=== PATIENT | male | born 1955 | race American Indian/Alaskan Native ===

== ENCOUNTER 2017-04-08 16:39 | Inpatient (IN) | payer OTHER ==
--- NOTE | 2017-04-08 16:54 | Emergency Department Report ---
Chief Complaint: Dyspnea/Respdistress Stated Complaint: SOB/CHEST PAIN Time Seen by Provider: 04/08/17 16:50 - HPI History of Present Illness: PT c/o cp and sob since yesterday PT states he had CHF 1 month ago. PT states he ran out of his medications - ROS Review of Systems: + cp + sob - leg swelling - Exam Physical Exam: pt looks well, non toxic no crackles auscultated jose MSE screening note: Focused history and physical exam performed. Due to findings the following was ordered: ekg, labs, xr ED Disposition for MSE Condition: Stable
[2017-04-08 18:05] LABS: Basophils % (Auto) 0.6 % (0.0-1.8); Eosinophils % (Auto) 4.9 % (0.0-4.3); Hematocrit 38.6 % (35.5-45.6); Hemoglobin 12.7 gm/dl (11.8-15.2); Mean Corpuscular HGB Conc 33 % (32-34); Mean Corpuscular Hemoglobin 28 pg (28-32); Mean Corpuscular Volume 86 fl (84-94); Platelet Count 175 K/mm3 (140-440); Red Blood Count 4.49 M/mm3 (3.65-5.03); White Blood Count 8.2 K/mm3 (4.5-11.0)
[2017-04-08 18:18] LABS: Alanine Aminotransferase 39 units/L (7-56); Albumin 3.7 g/dL (3.9-5); Albumin/Globulin Ratio 1.2 %; Alkaline Phosphatase 93 units/L (35-129); Anion Gap 18 mmol/L; Blood Urea Nitrogen 24 mg/dL (9-20); Calcium 8.7 mg/dL (8.4-10.2); Carbon Dioxide 23 mmol/L (22-30); Chloride 105.8 mmol/L (98-107); Glucose 94 mg/dL (75-100); Potassium 4.6 mmol/L (3.6-5.0); Sodium 142 mmol/L (137-145); Total Protein 6.8 g/dL (6.3-8.2)
[2017-04-09] MEDS ORDERED: NITRO-BID 2% TP ONE (02:52)
[2017-04-09] MEDS ORDERED: ASPIRIN PO ONE (02:53)
[2017-04-09] MEDS ORDERED: LASIX IV ONE (02:53)
[2017-04-09] MEDS ORDERED: CATAPRES PO ONE (02:53)
--- NOTE | 2017-04-09 03:44 | Emergency Department Report ---
ED Shortness of Breath HPI - General Chief Complaint: Chest Pain Stated Complaint: SOB/CHEST PAIN Time Seen by Provider: 04/08/17 16:50 Source: patient, old records reviewed (no previous medical supervisor record) Mode of arrival: Ambulatory Limitations: No Limitations - History of Present Illness Initial Comments: 61-year-old male with a past medical history CHF, diabetes, CAD, hypertension, and cardiac stent presents to the hospital with complaints of shortness of breath for the past 3 days. Patient ran out of his medication approximately 3 days ago. Patient was diagnosed with CHF 2 months ago while in [place] but came to [place] one-month ago. He complains of left-sided sharp intermittent chest pain, orthopnea, PND, and dyspnea on exertion. Similar symptoms when he was diagnosed with CHF 2 months ago. Patient denies history of calf tenderness or edema and no previous history of DVT/PE. - Related Data Allergies Allergy/AdvReac Type Severity Reaction Status Date / Time No Known Allergies Allergy Unverified 04/09/17 02:14 ED Review of Systems ROS: Stated complaint: SOB/CHEST PAIN Other details as noted in HPI Comment: All other systems reviewed and negative Other: Constitutional: No fevers chills Eyes: No eye pain visual changes ENT: No ear pain or throat pain Neck: Denies pain Respiratory: Denies cough wheezing Cardiovascular: Denies, palpitations, syncope GI: Denies abdominal pain, nausea, vomiting, diarrhea : Denies dysuria Musculoskeletal: Denies back pain Skin: Denies rash, lesions, erythema Neurologic: Denies headache, numbness, weakness Psychiatric: Denies suicidal ideation, hallucinations ED Past Medical Hx - Past Medical History Hx Hypertension: Yes Hx Heart Attack/AMI: Yes (stents) Hx Congestive Heart Failure: Yes Hx Diabetes: Yes - Surgical History Additional Surgical History: stents - Social History Smoking Status: Current Every Day Smoker Substance Use Type: Alcohol ED Physical Exam - General Limitations: No Limitations - Other Other exam information: General: No limitations, patient is alert in no acute distress Head exam: Atraumatic, normocephalic Eyes exam: Normal appearance ENT: Moist mucous membrane, normal oropharynx Neck exam: Normal inspection, full range of motion, no meningismus nontender Respiratory exam: Mild diminished breath sounds, no tachypnea or accessory muscle use Cardiovascular: Normal rate and rhythm, normal heart sounds Abdomen: Soft, nondistended, and nontender, with normal bowel sounds, no rebound, or guarding Extremity: Full range of motion normal inspection no deformity, no calf tenderness or edema Back: Normal Inspection, full range of motion, no tenderness Neurologic: Alert, oriented x3, cranial nerves intact, no motor or sensory deficit Psychiatric: normal affect, normal mood Skin: Warm, dry, intact ED Course Vital Signs 04/08/17 04/08/17 04/09/17 16:49 18:22 01:53 Temperature 98.6 F 98.8 F Pulse Rate 76 83 83 Respiratory 18 18 20 Rate Blood Pressure 207/116 206/133 Blood Pressure 217/120 [Left] O2 Sat by Pulse 99 99 96 Oximetry 04/09/17 04/09/17 03:35 03:36 Temperature Pulse Rate 84 84 Respiratory Rate Blood Pressure 204/116 204/116 Blood Pressure [Left] O2 Sat by Pulse Oximetry - Reevaluation(s) Reevaluation #1: 04/09/17 04:49 Patient treated with Lasix, clonidine, Nitropaste, and aspirin in the ED ED Medical Decision Making - Lab Data Result diagrams: 04/08/17 17:40 04/08/17 17:40 Lab Results 04/08/17 04/08/17 04/08/17 Range/Units 17:40 17:40 21:51 WBC 8.2 (4.5-11.0) K/mm3 RBC 4.49 (3.65-5.03) M/mm3 Hgb 12.7 (11.8-15.2) gm/dl Hct 38.6 (35.5-45.6) % MCV 86 (84-94) fl MCH 28 (28-32) pg MCHC 33 (32-34) % RDW 15.0 (13.2-15.2) % Plt Count 175 (140-440) K/mm3 Lymph % (Auto) 17.1 (13.4-35.0) % M[place]at % (Auto) 5.6 (0.0-7.3) % Eos % (Auto) 4.9 H (0.0-4.3) % Baso % (Auto) 0.6 (0.0-1.8) % Lymph # 1.4 (1.2-5.4) K/mm3 M[place]at # 0.5 (0.0-0.8) K/mm3 Eos # 0.4 (0.0-0.4) K/mm3 Baso # 0.1 (0.0-0.1) K/mm3 Seg Neutrophils % 71.8 H (40.0-70.0) % Seg Neutrophils # 5.9 (1.8-7.7) K/mm3 D-Dimer (0-234) ng/mlDDU Sodium 142 (137-145) mmol/L Potassium 4.6 (3.6-5.0) mmol/L Chloride 105.8 (98-107) mmol/L Carbon Dioxide 23 (22-30) mmol/L Anion Gap 18 mmol/L BUN 24 H (9-20) mg/dL Creatinine 1.6 H (0.8-1.5) mg/dL Estimated GFR 53 ml/min BUN/Creatinine Ratio 15.00 % Glucose 94 (75-100) mg/dL Calcium 8.7 (8.4-10.2) mg/dL Total Bilirubin 0.80 (0.1-1.2) mg/dL AST 26 (5-40) units/L ALT 39 (7-56) units/L Alkaline Phosphatase 93 (35-129) units/L Troponin T < 0.010 < 0.010 (0.00-0.029) ng/mL NT-Pro-B Natriuret Pep 16740 H (0-900) pg/mL Total Protein 6.8 (6.3-8.2) g/dL Albumin 3.7 L (3.9-5) g/dL Albumin/Globulin Ratio 1.2 % 04/09/17 04/09/17 Range/Units 03:42 03:56 WBC (4.5-11.0) K/mm3 RBC (3.65-5.03) M/mm3 Hgb (11.8-15.2) gm/dl Hct (35.5-45.6) % MCV (84-94) fl MCH (28-32) pg MCHC (32-34) % RDW (13.2-15.2) % Plt Count (140-440) K/mm3 Lymph % (Auto) (13.4-35.0) % [place] % (Auto) (0.0-7.3) % Eos % (Auto) (0.0-4.3) % Baso % (Auto) (0.0-1.8) % Lymph # (1.2-5.4) K/mm3 Moffat # (0.0-0.8) K/mm3 Eos # (0.0-0.4) K/mm3 Baso # (0.0-0.1) K/mm3 Seg Neutrophils % (40.0-70.0) % Seg Neutrophils # (1.8-7.7) K/mm3 D-Dimer 335.91 H (0-234) ng/mlDDU Sodium (137-145) mmol/L Potassium (3.6-5.0) mmol/L Chloride (98-107) mmol/L Carbon Dioxide (22-30) mmol/L Anion Gap mmol/L BUN (9-20) mg/dL Creatinine (0.8-1.5) mg/dL Estimated GFR ml/min BUN/Creatinine Ratio % Glucose (75-100) mg/dL Calcium (8.4-10.2) mg/dL Total Bilirubin (0.1-1.2) mg/dL AST (5-40) units/L ALT (7-56) units/L Alkaline Phosphatase (35-129) units/L Troponin T < 0.010 (0.00-0.029) ng/mL NT-Pro-B Natriuret Pep (0-900) pg/mL Total Protein (6.3-8.2) g/dL Albumin (3.9-5) g/dL Albumin/Globulin Ratio % - EKG Data -: EKG Interpreted by Me (sinus rhythm with frequent PVCs, lAE, LVH, ST depressiom t inv inf/lat) - Radiology Data Radiology results: image reviewed (chest x-ray: Increased interstitial markings) - Medical Decision Making Patient likely had CHF exacerbation secondary to medication noncompliance. D- dimer slightly elevated. VQ has been ordered and to be followed by the hospitalist. Magnesium pending given PVCs. Cardiac enzymes negative 3. No previous EKG available for comparison and no previous cardiac workup at this Hospital. - Differential Diagnosis CHF, unstable angina, PE, IN Critical Care Time: No Critical care attestation.: If time is entered above; I have spent that time in minutes in the direct care of this critically ill patient, excluding procedure time. ED Disposition Clinical Impression: CHF exacerbation, Chest pain, Uncontrolled hypertension, Noncompliance with medication regimen Disposition: OP ADMIT IP TO THIS HOSP Is pt being admited?: Yes Does the pt Need Aspirin: Yes Condition: Stable Time of Disposition: 03:44 (Dr ng/hosp)
[2017-04-09] MEDS ORDERED: APRESOLINE IV STA ×2 (04:23→04:25)
--- NOTE | 2017-04-09 04:40 | History and Physical Report ---
History of Present Illness Date of examination: 04/09/17 Date of admission: 04/09/17 Chief complaint: chest pain shortness of breath Elevated BP History of present illness: Patient is 61-year-old with history of hypertension, diabetes. He presents with chest pain, shortness of breath and elevated blood pressure. Chest pain is left-sided, dull, 8 out of 10, no radiation. Chest pain is not related to food. Shortness of breath is worse on exertion and on lying flat. He states his blood pressure was elevated Systolic BP>220 therefore came to the emergency department for evaluation. Initial Troponin was normal. In ED was given clonidine and hydralazine. BP remained elevated. He will be started on Cardene drip and admitted to the intensive care unit. Patient is from [place], been in [place] for few months, ran out of meds for 3 days. Past History Past Medical History: CAD (s/p stent placement), diabetes, heart failure, hypertension Past Surgical History: Other (left knee surgery) Social history: , lives with family, smoking (1 pack a day), alcohol abuse (once to twice a week) Family history: no significant family history Medications and Allergies Allergies Allergy/AdvReac Type Severity Reaction Status Date / Time No Known Allergies Allergy Unverified 04/09/17 02:14 Home Medications Medication Instructions Recorded Confirmed Last Taken Type Albuterol Sulfate [Ventolin HFA] 2 puff IH Q4H PRN 04/09/17 04/09/17 Unknown History Atenolol [Tenormin] 50 mg PO DAILY 04/09/17 04/09/17 04/08/17 History Bumetanide [Bumex 1 mg tab] 1 mg PO DAILY 04/09/17 04/09/17 04/07/17 History Clopidogrel [Plavix] 75 mg PO QDAY 04/09/17 04/09/17 04/08/[address] [Voltarepalak Dr] 75 mg PO BID 04/09/17 04/09/17 04/07/17 History HYDROcodone/APAP 10-325 [[place] 1 each PO Q6HR PRN 04/09/17 04/09/17 04/07/17 History 10/325] Lisinopril [Zestril] 20 mg PO QDAY 04/09/17 04/09/17 04/08/17 History NIFEdipine [NIFEdipine] 20 mg PO DAILY 04/09/17 04/09/17 04/07/17 History Simvastatin [Zocor TAB] 40 mg PO QHS 04/09/17 04/09/17 04/07/17 History Tadalafil [Cialis] 5 mg PO QDAY 04/09/17 04/09/17 04/08/17 History glipiZIDE [glipiZIDE XL] 2.5 mg PO DAILY 04/09/17 04/09/17 04/07/17 History Exam - Physical Exam Narrative exam: General appearance: not in acute distress, HEENT: normocephalic, atraumatic Neck : supple, no JVD Lungs: bilateral basal rales, no wheezes Heart :S1 and S2 regular, no murmurs, no gallop Abdomen: soft, non-tender, non-distended, normal bowel sounds Extremities: no edema, clubbing or cyanosis Neuro : awake, alert, oriented x 3, no focal neurological signs Psych : normal mood - Constitutional Vitals: Temp Pulse Resp BP Pulse Ox 98.8 F 84 20 204/116 96 04/09/17 01:53 04/09/17 03:36 04/09/17 01:53 04/09/17 03:36 04/09/17 01:53 Results - Labs CBC & Chem 7: 04/09/17 08:04 04/09/17 08:04 Labs: Abnormal lab results 04/08/17 04/08/17 04/09/17 Range/Units 17:40 17:40 03:42 Eos % (Auto) 4.9 H (0.0-4.3) % Seg Neutrophils % 71.8 H (40.0-70.0) % D-Dimer 335.91 H (0-234) ng/mlDDU BUN 24 H (9-20) mg/dL Creatinine 1.6 H (0.8-1.5) mg/dL NT-Pro-B Natriuret Pep 32052 H (0-900) pg/mL Albumin 3.7 L (3.9-5) g/dL Assessment and Plan Hypertensive emergency. BP still elevated at 204/116. Admit to ICU. Start Cardene drip. toitrate to decrease MAP by 25% first 24 hrs. Chest pain. May need stress test when BP controlled. Consult Cardiology CHF exacerbation. lasix, Coreg Acute kidney injury. Cr 1.6. Baseline unknown. Will monitor. Give lower dose of lasix CAD. s/p stent. give Aspirin, Plavix. His home med list not available. Full code status
[2017-04-09] MEDS ORDERED: MILK OF MAGNESIA PO PRN (04:41)
[2017-04-09] MEDS ORDERED: MORPHINE IV PRN (04:41)
[2017-04-09] MEDS ORDERED: ALUM-MAG HYDROX-SIMETH 200-200-20MG/5ML PO PRN (04:41)
[2017-04-09] MEDS ORDERED: DULCOLAX PR PRN (04:41)
[2017-04-09] MEDS ORDERED: NITROSTAT SL PRN (04:50)
[2017-04-09] MEDS ORDERED: CARDENE 50 MG in NACL 0.9% 250ML 230 ML IV SCH (05:00)
--- NOTE | 2017-04-09 06:29 | Nuclear Medicine Report ---
FINAL REPORT EXAM: NM LUNG SCAN PERF/VENT HISTORY: shortness of breath,elevated d-dimer TECHNIQUE: Ventilation perfusion lung scan was performed. Ventilation dosage: 15 mCi Xenon 133 aerosol Perfusion dosage: 5 mCi technetium 99 M MAA IV PRIORS: Correlation is made with chest radiograph of 04/08/2017 FINDINGS: There is normal homogeneous ventilation at equilibrium. There is normal washout of activity bilaterally. Perfusion images are mildly heterogeneous. No segmental defects are seen. IMPRESSION: Findings are compatible with a very low probability of pulmonary embolism.
--- NOTE | 2017-04-09 07:26 | Admit Criteria Form ---
Admission Criteria Documentation: HEART FAILURE: COMMON COMPLICATIONS Clinical Indications for Inpatient Care (Place 'X' for any and all applicable criteria): Ongoing inpatient care may be indicated for heart failure with ANY ONE of the following (1)(2)(3)(4)(5): [ ]I. Ongoing need for care for primary condition requiring frequent therapy adjustments because of changes in cardiac function (eg, drug dosage changes for drugs that are renally metabolized) [ ]II. New-onset heart failure [ ]III. Heart failure with decreased urine output not responsive to attempts to optimize volume status [ ]IV. Acute cardiac ischemia causing or associated with failure [X]V. Complications of heart failure, including ANY ONE of the following: [ ]a) Pericardial effusion [ ]b) Symptomatic pleural effusion [ ]c) O2 saturation <90% or PO2 < 60 mm Hg (8.0 kPa) on room air or require baseline supplemental O2 [ ]d) Tachypnea [X]e) Dyspnea [ ]f) Syncope [ ]g) Change in mental status [ ]h) Acute renal insufficiency that is severe (reduction of more than 50% in estimated glomerular filtration rate from baseline) or progressive reduction of more than 25% in estimated glomerular filtration rate from baseline, with creatinine continuing to rise) [ ]i) Hemodynamic instability [ ]j) Anasarca [ ]k) Clinically significant metabolic abnormalities due to heart failure (eg, new-onset metabolic acidosis) Extended stay beyond goal length of stay for primary condition may be needed until ALL of the following are present(1)(3): [ ]a) Stable and effective diuretic regimen established (or patient on stable dialysis regimen if in chronic renal failure) [ ]b) Breathing comfortably at rest [ ]c) Saturation of arterial oxygen greater than 90% or at acceptable baseline [ ]d) Pulmonary edema absent or improved [ ]e) Hemodynamic stability [ ]f) Volume status acceptable on oral medication [ ]g) Peripheral or sacral edema absent or improved [ ]h) Renal function stable and manageable at a lower level of care [ ]i) Complications (eg, pleural effusion) resolved or manageable at a lower level of care [ ]j) Patient or caregiver has received written discharge instructions or educational material addressing activity level, diet, discharge medications, follow-up appointment, weight monitoring, and what to do if symptoms worsen The original [facility] content created by [employer] has been revised. The portions of the content which have been revised are identified through the use of italic text or in bold, and [facility] has neither reviewed nor approved the modified material.All other unmodified content is copyright [facility]. Please see references footnoted in the original [facility] edition 2016 Admission Criteria Met: Yes
[2017-04-09] MEDS ORDERED: NACL 0.9% 500 ML 500 ML ONE (08:04)
[2017-04-09 08:22] LABS: Hematocrit 39.5 % (35.5-45.6); Hemoglobin 13.2 gm/dl (11.8-15.2); Mean Corpuscular HGB Conc 33 % (32-34); Mean Corpuscular Hemoglobin 28 pg (28-32); Mean Corpuscular Volume 85 fl (84-94); Platelet Count 180 K/mm3 (140-440); Red Blood Count 4.64 M/mm3 (3.65-5.03); Red Cell Distribution Width 14.5 % (13.2-15.2); White Blood Count 10.2 K/mm3 (4.5-11.0)
[2017-04-09 08:42] LABS: Anion Gap 18 mmol/L; BUN/Creatinine Ratio 15.71; Blood Urea Nitrogen 22 mg/dL (9-20); Calcium 9.2 mg/dL (8.4-10.2); Carbon Dioxide 24 mmol/L (22-30); Chloride 107.1 mmol/L (98-107); Glucose 97 mg/dL (75-100); Potassium 3.7 mmol/L (3.6-5.0); Sodium 145 mmol/L (137-145)
[2017-04-09] MEDS: COREG PO SCH ×2 (11:10→22:38)
--- NOTE | 2017-04-09 11:10 | XRay Report ---
Chest 2 views: History: Dyspnea. Findings: Cardiomegaly. Trachea is midline. No consolidation, pneumothorax or pleural effusion. Impression: Cardiomegaly. No definite acute changes.
[2017-04-09] MEDS: HALFPRIN EC PO SCH (11:19)
[2017-04-09] MEDS: PLAVIX PO SCH (11:19)
--- NOTE | 2017-04-09 13:49 | Consultation ---
History of Present Illness Consult date: 04/09/17 Consult reason: chest pain, congestive heart failure History of present illness: This is a 61yr old male who presents to the ED with complaints of shortness of breath and chest pain. Cardiology consultation requested. Hypertensive on presentation with a BP 207/116. Patient is somewhat a poor historian but reports a remote history of coronary artery disease. Patient reports his most recent cardiac workup was a stress test done just over a month ago he reports as normal. 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 His ECG shows a sinus rhythm with occasional PVCs. Past History Past Medical History: CAD, diabetes, hypertension Past Surgical History: Other (left knee surgery) Social history: , lives with family, smoking (1 pack a day), alcohol abuse (once to twice a week) Family history: no significant family history Medications and Allergies Allergies Allergy/AdvReac Type Severity Reaction Status Date / Time No Known Allergies Allergy Unverified 04/09/17 02:14 Home Medications Medication Instructions Recorded Confirmed Last Taken Type Albuterol Sulfate [Ventolin HFA] 2 puff IH Q4H PRN 04/09/17 04/09/17 Unknown History Atenolol [Tenormin] 50 mg PO DAILY 04/09/17 04/09/17 04/08/17 History Bumetanide [Bumex 1 mg tab] 1 mg PO DAILY 04/09/17 04/09/17 04/07/17 History Clopidogrel [Plavix] 75 mg PO QDAY 04/09/17 04/09/17 04/08/17 History Diclofenac [Noemi Hicks] 75 mg PO BID 04/09/17 04/09/17 04/07/17 History HYDROcodone/APAP 10-325 [[place] 1 each PO Q6HR PRN 04/09/17 04/09/17 04/07/17 History 10/325] Lisinopril [Zestril] 20 mg PO QDAY 04/09/17 04/09/17 04/08/17 History NIFEdipine [NIFEdipine] 20 mg PO DAILY 04/09/17 04/09/17 04/07/17 History Simvastatin [Zocor TAB] 40 mg PO QHS 04/09/17 04/09/17 04/07/17 History Tadalafil [Cialis] 5 mg PO QDAY 04/09/17 04/09/17 04/08/17 History glipiZIDE [glipiZIDE XL] 2.5 mg PO DAILY 04/09/17 04/09/17 04/07/17 History Active Meds: Active Medications Al Hydrox/Mg Hydrox/Simethicone (Alum-Mag Hydrox-Simeth [phone]/5ml) 30 ml PO Q4H PRN PRN Reason: Indigestion Aspirin (Halfprin Ec) [address] [facility] Last Admin: 04/09/17 11:19 Dose: 81 mg Bisacodyl (Dulcolax) 10 mg [place] QDAY PRN PRN Reason: constipation unrelieved by MOM Carvedilol (Coreg) 3.[address] [facility] Last Admin: 04/09/17 11:10 Dose: 3.125 mg Clopidogrel Bisulfate (Plavix) [address] [facility] Last Admin: 04/09/17 11:19 Dose: 75 mg Furosemide (Lasix) 20 mg IV BID@0600,1800 [facility] Nicardipine HCl 50 mg/ Sodium (Chloride) 250 mls @ 25 mls/hr IV TITR AYAAN; 5 MG/ HR PRN Reason: Protocol Insulin Human Regular (Novolin R) 0 units SUB-Q ACHS AYAAN PRN Reason: Protocol Magnesium Hydroxide (Milk Of Magnesia) 30 ml PO Q4H PRN PRN Reason: Constipation Morphine Sulfate (Morphine) 2 mg IV Q4H PRN PRN Reason: Pain, Moderate (4-6) Nitroglycerin (Nitrostat) 0.4 mg SL .Q5MIN PRN PRN Reason: Chest Pain Physical Examination Vital Signs Temp Pulse Resp BP Pulse Ox 98.6 F 76 18 207/116 99 04/08/17 16:49 04/08/17 16:49 04/08/17 16:49 04/08/17 16:49 04/08/17 16:49 General appearance: no acute distress HEENT: Positive: PERRL Neck: Positive: trachea midline Cardiac: Positive: Reg Rate and Rhythm Results 04/09/17 08:04 04/09/17 08:04 CBC 04/09/17 Range/Units 08:04 WBC 10.2 (4.5-11.0) K/mm3 RBC 4.64 (3.65-5.03) M/mm3 Hgb 13.2 (11.8-15.2) gm/dl Hct 39.5 (35.5-45.6) % Plt Count 180 (140-440) K/mm3 Comprehensive Metabolic Panel 04/09/17 Range/Units 08:04 Sodium 145 (137-145) mmol/L Potassium 3.7 (3.6-5.0) mmol/L Chloride 107.1 H (98-107) mmol/L Carbon Dioxide 24 (22-30) mmol/L BUN 22 H (9-20) mg/dL Creatinine 1.4 (0.8-1.5) mg/dL Glucose 97 (75-100) mg/dL Calcium 9.2 (8.4-10.2) mg/dL Assessment and Plan Shortness of breath low probability for PE Chest pain Hypertension -uncontrolled Hx of CAD Diabetes mellitus Recommendations: Obtain prior cardiac records from [place]. Optimal BP management.
--- NOTE | 2017-04-09 16:59 | Event Note ---
Date: 04/09/17 Patient admitted for hypertensive urgency, chest pain currently blood pressure is controlled now that he can be admitted to telemetry floor.
[2017-04-09] MEDS: HEPARIN SUB-Q SCH ×2 (17:00→22:40)
[2017-04-09] MEDS: LASIX IV SCH (18:45)
[2017-04-09] MEDS ORDERED: NACL 0.9% 500 ML 500 ML IV SCH (21:00)
[2017-04-09] MEDS ORDERED: DIOVAN PO SCH (22:00)
[2017-04-09] MEDS: APRESOLINE IV PRN (22:39)
[2017-04-10] MEDS ORDERED: NACL 0.9% 500 ML 500 ML IV SCH (06:00)
[2017-04-10] MEDS: LASIX IV SCH (06:30)
[2017-04-10] MEDS: HEPARIN SUB-Q SCH ×3 (06:31→22:17)
[2017-04-10 07:37] LABS: Basophils % (Auto) 0.9 % (0.0-1.8); Eosinophils % (Auto) 8.9 % (0.0-4.3); Hematocrit 40.2 % (35.5-45.6); Hemoglobin 13.3 gm/dl (11.8-15.2); Mean Corpuscular HGB Conc 33 % (32-34); Mean Corpuscular Hemoglobin 29 pg (28-32); Mean Corpuscular Volume 86 fl (84-94); Platelet Count 183 K/mm3 (140-440); Red Blood Count 4.66 M/mm3 (3.65-5.03); Red Cell Distribution Width 14.9 % (13.2-15.2); White Blood Count 6.5 K/mm3 (4.5-11.0)
[2017-04-10 07:48] LABS: BUN/Creatinine Ratio 13.12; Calcium 8.8 mg/dL (8.4-10.2)
[2017-04-10] MEDS ORDERED: HEPARIN/NS 5000 UNIT/500ML(CATH LAB) 1,000 ML IR ONE (08:15)
[2017-04-10] MEDS ORDERED: HEPARIN 10,000 UNITS/10 ML ONE (08:15)
[2017-04-10] MEDS ORDERED: CALAN ONE (08:16)
[2017-04-10] MEDS ORDERED: NACL 0.9% 500 ML 0 ML ONE (08:17)
[2017-04-10] MEDS ORDERED: XYLOCAINE 2% INFILTRATI ONE (08:17)
[2017-04-10] MEDS ORDERED: NITROGLYCERIN SYRINGE 0 ML ONE (08:17)
[2017-04-10] MEDS: SUBLIMAZE ONE ×2 (08:54→09:20)
[2017-04-10] MEDS: VERSED ONE ×2 (08:55→09:20)
[2017-04-10] MEDS ORDERED: APRESOLINE ONE (09:11)
[2017-04-10] MEDS ORDERED: NITROSTAT SL ONE (09:16)
[2017-04-10 09:33] LABS: INR 1.01 (0.87-1.13)
--- NOTE | 2017-04-10 09:43 | Progress Note ---
Assessment and Plan Shortness of breath low probability for PE Unstable angina Cardiac cath - 99% distal CX stent stenosis, 70% OM1, 70% Proximal RCA and 80 % distal RCA, 90% PLVB (diffusely diseased) Ischemic cardiomyopathy, LVEF 30-35% Hypertension -uncontrolled Diabetes mellitus Acute on chronic renal failure 30 cc of contrast used today for diagnostic angiogram Recommendations: Start nifedipine for blood pressure control Start lipitor 40 mg Continue asa, plavix and coreg Discontinue valsartan and lasix for the time being given rise in creatinine Gentle hydration overnight for potential staged intervention to CX and RCA Will hold on anticoagulation given recent groin arterial access and elevated blood pressure Repeat labs in am NPO after MN Risk factor modification Subjective Date of service: 04/10/17 Principal diagnosis: Unstable angina Interval history: Patient underwent a cardiac cath through a groin approach this morning - no complications Objective Vital Signs Temp Pulse Pulse Resp Resp BP BP 04/10/17 08:33 04/10/17 08:32 04/10/17 06:42 98.3 F 72 23 171/89 04/10/17 01:00 98.3 F 74 20 04/09/17 22:39 70 190/100 04/09/17 22:38 70 190/100 04/09/17 21:00 98.5 F 70 20 20 04/09/17 19:20 162/97 04/09/17 19:11 160/92 04/09/17 19:00 162/54 04/09/17 18:50 158/65 04/09/17 18:41 190/103 04/09/17 18:31 140/119 04/09/17 18:21 153/124 04/09/17 18:11 181/94 04/09/17 18:00 167/99 04/09/17 17:51 171/93 04/09/17 17:41 171/86 04/09/17 17:31 198/100 04/09/17 17:21 139/88 04/09/17 17:11 153/96 04/09/17 17:01 167/89 04/09/17 17:00 04/09/17 16:31 167/89 04/09/17 16:21 153/65 04/09/17 16:10 141/84 04/09/17 16:00 131/79 04/09/17 15:51 138/80 04/09/17 15:41 137/50 04/09/17 14:50 137/50 04/09/17 14:40 130/59 04/09/17 14:30 134/53 04/09/17 14:20 165/90 04/09/17 14:11 171/80 04/09/17 14:01 145/73 04/09/17 13:50 145/73 04/09/17 13:40 154/66 04/09/17 13:31 158/67 04/09/17 13:20 155/84 04/09/17 13:11 138/86 04/09/17 13:00 144/76 04/09/17 12:51 169/93 04/09/17 12:41 159/124 04/09/17 12:30 152/77 04/09/17 12:21 139/87 04/09/17 12:10 150/77 04/09/17 12:00 137/91 04/09/17 11:51 181/84 04/09/17 11:41 181/84 04/09/17 11:30 163/97 04/09/17 11:21 155/96 04/09/17 11:11 176/98 04/09/17 11:10 89 142/88 04/09/17 11:01 151/100 04/09/17 10:51 135/81 04/09/17 10:41 135/81 04/09/17 10:30 135/81 04/09/17 10:21 139/76 04/09/17 10:11 142/87 04/09/17 10:01 142/87 04/09/17 10:00 64 16 187/100 04/09/17 09:50 146/83 04/09/17 09:41 146/89 BP Pulse Ox 04/10/17 08:33 94 04/10/17 08:32 95 04/10/17 06:42 95 04/10/17 01:00 161/93 96 04/09/17 22:39 04/09/17 22:38 04/09/17 21:00 190/100 97 04/09/17 19:20 100 04/09/17 19:11 99 04/09/17 19:00 96 04/09/17 18:50 100 04/09/17 18:41 94 04/09/17 18:31 98 04/09/17 18:21 97 04/09/17 18:11 98 04/09/17 18:00 100 04/09/17 17:51 98 04/09/17 17:41 98 04/09/17 17:31 97 04/09/17 17:21 100 04/09/17 17:11 97 04/09/17 17:01 92 04/09/17 17:00 100 04/09/17 16:31 98 04/09/17 16:21 100 04/09/17 16:10 98 04/09/17 16:00 100 04/09/17 15:51 99 04/09/17 15:41 97 04/09/17 14:50 96 04/09/17 14:40 98 04/09/17 14:30 99 04/09/17 14:20 98 04/09/17 14:11 96 04/09/17 14:01 98 04/09/17 13:50 95 04/09/17 13:40 97 04/09/17 13:31 96 04/09/17 13:20 94 04/09/17 13:11 99 04/09/17 13:00 97 04/09/17 12:51 95 04/09/17 12:41 96 04/09/17 12:30 97 04/09/17 12:21 95 04/09/17 12:10 96 04/09/17 12:00 98 04/09/17 11:51 99 04/09/17 11:41 95 04/09/17 11:30 96 04/09/17 11:21 98 04/09/17 11:11 97 04/09/17 11:10 04/09/17 11:01 96 04/09/17 10:51 99 04/09/17 10:41 97 04/09/17 10:30 94 04/09/17 10:21 97 04/09/17 10:11 97 04/09/17 10:01 96 04/09/17 10:00 100 04/09/17 09:50 98 04/09/17 09:41 96 - Physical Examination HEENT: Positive: PERRL Neck: Positive: trachea midline Cardiac: Positive: Reg Rate and Rhythm Lungs: Positive: Normal Exam Neuro: Positive: Grossly Intact - Labs and Meds Coagulation 04/10/17 Range/Units 09:00 PT 13.2 (12.2-14.9) Sec. INR 1.01 (0.87-1.13) CBC 04/10/17 Range/Units 07:10 WBC 6.5 (4.5-11.0) K/mm3 RBC 4.66 (3.65-5.03) M/mm3 Hgb 13.3 (11.8-15.2) gm/dl Hct 40.2 (35.5-45.6) % Plt Count 183 (140-440) K/mm3 Lymph # 1.0 L (1.2-5.4) K/mm3 [place] # 0.5 (0.0-0.8) K/mm3 Eos # 0.6 H (0.0-0.4) K/mm3 Baso # 0.1 (0.0-0.1) K/mm3 Comprehensive Metabolic Panel 04/10/17 Range/Units 07:10 Sodium 145 (137-145) mmol/L Potassium 4.0 (3.6-5.0) mmol/L Chloride 108.0 H (98-107) mmol/L Carbon Dioxide 24 (22-30) mmol/L BUN 21 H (9-20) mg/dL Creatinine 1.6 H (0.8-1.5) mg/dL Glucose 101 H (75-100) mg/dL Calcium 8.8 (8.4-10.2) mg/dL
[2017-04-10] MEDS: APRESOLINE IV PRN (13:21)
[2017-04-10] MEDS: HALFPRIN EC PO SCH (13:23)
[2017-04-10] MEDS: COREG PO SCH ×2 (13:23→22:17)
[2017-04-10] MEDS: PLAVIX PO SCH (13:23)
[2017-04-10] MEDS: PROCARDIA XL PO SCH ×2 (13:23→22:17)
--- NOTE | 2017-04-10 13:57 | Cardiac Catherization Report ---
ORDERING PHYSICIAN: Maxine Ames MD INDICATION FOR THE PROCEDURE: Unstable angina. DESCRIPTION OF THE PROCEDURE 1. Selective left and right coronary angiography. 2. Left ventriculogram was not performed due to the patient's underlying renal insufficiency. 3. After obtaining written consent, the patient was draped using sterile technique. 4. A 2% lidocaine was injected into the right groin. 5. A 5-Finnish vascular sheath was inserted into the right common femoral artery using micropuncture technique. 6. A 5-Finnish JL4 catheter was used to selectively engage the left coronary artery. 7. A 5-Finnish JR4 catheter was used to selectively engage the right coronary artery. 8. No complications occurred during the procedure. 9. Hemostasis was achieved at the end of the procedure using manual pressure. ESTIMATED BLOOD LOSS: Minimal. SPECIMEN REMOVED: None. CONTRAST ADMINISTERED: 30 mL. SEDATION ADMINISTERED: 1 mg of IV Versed and 50 mcg of IV fentanyl. FINDINGS: HEMODYNAMICS: Aortic pressure was 186/84 with an LV systolic pressure of 186 mmHg and an LVEDP of 30 mmHg. CARDIAC STRUCTURES: A left ventriculogram was not performed due to the patient's underlying renal insufficiency. CORONARY ANATOMY: 1. This is a right dominant circulation. 2. The left main is angiographically normal. 3. The left anterior descending artery has mild to moderate diffuse luminal irregularities with no evidence of obstructive stenosis. 4. The left circumflex artery has evidence of 70% proximal OM1 lesion that is focal. There is a 99% occlusion of the distal edge of the previously placed stent in the proximal segment of the posterolateral obtuse marginal, distal to the takeoff of the AV groove vessel. There is evidence of left collaterals from the proximal circumflex as well as in the LAD feeding into the distal left circumflex artery. 5. The right coronary artery is dominant. There is evidence of a 70% focal stenosis in the proximal right coronary artery. This is followed by an 80% focal stenosis in the distal right coronary artery before the bifurcation of the PDA and PLVB. There is a 90% tubular stenosis of the PLVB, which is a diffusely diseased vessel and small in caliber. The PDA however is a large caliber vessel. IMPRESSION: 1. Significant coronary artery disease with a 70% focal stenosis of the first obtuse marginal, 99% subtotal occlusion of the distal circumflex stent, 70% proximal RCA, 80% distal RCA, and 90% PLVB. 2. LVEDP measured at 30 mmHg. RECOMMENDATIONS: 1. The patient will be recommended for a staged PCI of the right coronary artery as well as the left circumflex artery. 2. We will recommend IV hydration overnight and repeat labs in the morning. 3. Avoid all nephrotoxins. We will continue to follow. JOB# [id number] MONTSERRAT/CATARINA
--- NOTE | 2017-04-10 16:30 | Progress Note ---
Assessment and Plan Assessment and plan: Hypertensive urgency ; - Patient was on Cardizem drip in the emergency department and blood pressure was controlled and admitted to telemetry to continue his medications - Nifedipine was added, Lasix and valsartan discontinued Unstable anginaCardiac cath - 99% distal CX stent stenosis, 70% OM1, 70% Proximal RCA and 80% distal RCA, 90% PLVB (diffusely diseased) - Continue aspirin, Plavix and Coreg, gentle hydration overnight and possible intervention vision in the morning, patient has elevation in creatinine - Continue his anticoagulation Ischemic cardiomyopathy with ejection fraction of 30-35% Diabetes mellitus leading still insulin Acute on chronic renal failure - Held Lasix, gentle hydration DVT prophylaxis - SCD Disposition - Continue inpatient care History Interval history: Patient was seen and evaluated after he come back from a cardiac cath, patient was lying comfortably not in pain or distress. Hospitalist Physical - Physical exam Narrative exam: Not in cardiopulmonary distress. The patient appeared well nourished and normally developed. Vital signs as documented. Head exam is unremarkable. No scleral icterus . Neck is without jugular venous distension, thyromegaly, or carotid bruits. Lungs are clear to auscultation. Cardiac exam reveals regular rate and Rhythm. First and second heart sounds normal. No murmurs, rubs or gallops. Abdominal exam reveals normal bowel sounds, no masses, no organomegaly and no aortic enlargement. Extremities are nonedematous and both femoral and pedal pulses are normal. ESCALATOR ATTENDANT: Alert and oriented 3. No focal weakness. - Constitutional Vitals: Temp Pulse Resp BP Pulse Ox 97.8 F 83 20 200/107 99 04/10/17 12:02 04/10/17 13:48 04/10/17 12:02 04/10/17 13:23 04/10/17 12:02 General appearance: Present: no acute distress Results - Labs CBC & Chem 7: 04/10/17 07:10 04/10/17 07:10 Labs: Laboratory Last Values WBC 6.5 K/mm3 (4.5-11.0) 04/10/17 07:10 RBC 4.66 M/mm3 (3.65-5.03) 04/10/17 07:10 Hgb 13.3 gm/dl (11.8-15.2) 04/10/17 07:10 Hct 40.2 % (35.5-45.6) 04/10/17 07:10 MCV 86 fl (84-94) 04/10/17 07:10 MCH 29 pg (28-32) 04/10/17 07:10 MCHC 33 % (32-34) 04/10/17 07:10 RDW 14.9 % (13.2-15.2) 04/10/17 07:10 Plt Count 183 K/mm3 (140-440) 04/10/17 07:10 Lymph % (Auto) 15.1 % (13.4-35.0) 04/10/17 07:10 [place] % (Auto) 7.6 % (0.0-7.3) H 04/10/17 07:10 Eos % (Auto) 8.9 % (0.0-4.3) H 04/10/17 07:10 Baso % (Auto) 0.9 % (0.0-1.8) 04/10/17 07:10 Lymph # 1.0 K/mm3 (1.2-5.4) L 04/10/17 07:10 [place] # 0.5 K/mm3 (0.0-0.8) 04/10/17 07:10 Eos # 0.6 K/mm3 (0.0-0.4) H 04/10/17 07:10 Baso # 0.1 K/mm3 (0.0-0.1) 04/10/17 07:10 Seg Neutrophils % 67.5 % (40.0-70.0) 04/10/17 07:10 Seg Neutrophils # 4.4 K/mm3 (1.8-7.7) 04/10/17 07:10 PT 13.2 Sec. (12.2-14.9) 04/10/17 09:00 INR 1.01 (0.87-1.13) 04/10/17 09:00 D-Dimer 335.91 ng/mlDDU (0-234) H 04/09/17 03:42 Sodium 145 mmol/L (137-145) 04/10/17 07:10 Potassium 4.0 mmol/L (3.6-5.0) 04/10/17 07:10 Chloride 108.0 mmol/L (98-107) H 04/10/17 07:10 Carbon Dioxide 24 mmol/L (22-30) 04/10/17 07:10 Anion Gap 17 mmol/L 04/10/17 07:10 BUN 21 mg/dL (9-20) H 04/10/17 07:10 Creatinine 1.6 mg/dL (0.8-1.5) H 04/10/17 07:10 Estimated GFR 53 ml/min 04/10/17 07:10 BUN/Creatinine Ratio 13.12 % 04/10/17 07:10 Glucose 101 mg/dL (75-100) H 04/10/17 07:10 POC Glucose 134 (70-105) H 04/09/17 22:11 Calcium 8.8 mg/dL (8.4-10.2) 04/10/17 07:10 Total Bilirubin 0.80 mg/dL (0.1-1.2) 04/08/17 17:40 AST 26 units/L (5-40) 04/08/17 17:40 ALT 39 units/L (7-56) 04/08/17 17:40 Alkaline Phosphatase 93 units/L (35-129) 04/08/17 17:40 Troponin T < 0.010 ng/mL (0.00-0.029) 04/09/17 03:56 NT-Pro-B Natriuret Pep 86101 pg/mL (0-900) H 04/08/17 17:40 Total Protein 6.8 g/dL (6.3-8.2) 04/08/17 17:40 Albumin 3.7 g/dL (3.9-5) L 04/08/17 17:40 Albumin/Globulin Ratio 1.2 % 04/08/17 17:40
[2017-04-10] MEDS: NACL 0.9% 1000 ML 1,000 ML IV SCH (22:18)
[2017-04-11] MEDS: HEPARIN SUB-Q SCH ×3 (06:31→22:16)
[2017-04-11 08:35] LABS: Basophils % (Auto) 0.6 % (0.0-1.8); Eosinophils % (Auto) 8.8 % (0.0-4.3); Hematocrit 40.9 % (35.5-45.6); Hemoglobin 13.6 gm/dl (11.8-15.2); Mean Corpuscular HGB Conc 33 % (32-34); Mean Corpuscular Hemoglobin 29 pg (28-32); Mean Corpuscular Volume 87 fl (84-94); Platelet Count 195 K/mm3 (140-440); Red Blood Count 4.73 M/mm3 (3.65-5.03); White Blood Count 6.3 K/mm3 (4.5-11.0)
[2017-04-11 08:40] LABS: Anion Gap 17 mmol/L; Blood Urea Nitrogen 16 mg/dL (9-20); Carbon Dioxide 23 mmol/L (22-30); Chloride 104.6 mmol/L (98-107); Glucose 117 mg/dL (75-100); Potassium 3.8 mmol/L (3.6-5.0); Sodium 141 mmol/L (137-145)
--- NOTE | 2017-04-11 09:28 | Progress Note ---
Assessment and Plan Shortness of breath low probability for PE Unstable angina Cardiac cath films to be reviewed by aix system administrator Ischemic cardiomyopathy, LVEF 30-35% Hypertension Diabetes mellitus Acute renal failure Subjective Date of service: 04/11/17 Principal diagnosis: Unstable angina Interval history: Sinus rhythm on telemetry. Objective Vital Signs Temp Pulse Pulse Resp Resp BP BP 04/11/17 05:33 98.6 F 80 20 143/73 04/11/17 03:06 81 04/11/17 00:52 98.4 F 91 H 20 147/78 04/10/17 22:17 84 161/89 04/10/17 21:16 04/10/17 21:12 98.2 F 84 20 161/89 04/10/17 20:53 18 18 04/10/17 19:04 83 04/10/17 16:00 68 18 04/10/17 13:48 83 04/10/17 13:23 75 200/107 04/10/17 13:21 75 04/10/17 12:02 97.8 F 85 20 207/100 04/10/17 10:00 65 Pulse Ox 04/11/17 05:33 96 04/11/17 03:06 04/11/17 00:52 96 04/10/17 22:17 04/10/17 21:16 95 04/10/17 21:12 04/10/17 20:53 98 04/10/17 19:04 04/10/17 16:00 04/10/17 13:48 04/10/17 13:23 04/10/17 13:21 04/10/17 12:02 99 04/10/17 10:00 - Physical Examination Cardiac: Positive: Reg Rate and Rhythm Neuro: Positive: Grossly Intact - Labs and Meds Coagulation 04/10/17 Range/Units 09:00 PT 13.2 (12.2-14.9) Sec. INR 1.01 (0.87-1.13) CBC 04/11/17 Range/Units 07:05 WBC 6.3 (4.5-11.0) K/mm3 RBC 4.73 (3.65-5.03) M/mm3 Hgb 13.6 (11.8-15.2) gm/dl Hct 40.9 (35.5-45.6) % Plt Count 195 (140-440) K/mm3 Lymph # 1.0 L (1.2-5.4) K/mm3 [place] # 0.5 (0.0-0.8) K/mm3 Eos # 0.6 H (0.0-0.4) K/mm3 Baso # 0.0 (0.0-0.1) K/mm3 Comprehensive Metabolic Panel 04/11/17 Range/Units 07:05 Sodium 141 (137-145) mmol/L Potassium 3.8 (3.6-5.0) mmol/L Chloride 104.6 (98-107) mmol/L Carbon Dioxide 23 (22-30) mmol/L BUN 16 (9-20) mg/dL Creatinine 1.3 (0.8-1.5) mg/dL Glucose 117 H (75-100) mg/dL Calcium 9.0 (8.4-10.2) mg/dL
[2017-04-11] MEDS: COREG PO SCH ×2 (10:59→22:17)
[2017-04-11] MEDS: HALFPRIN EC PO SCH (10:59)
[2017-04-11] MEDS: PLAVIX PO SCH (10:59)
[2017-04-11] MEDS: PROCARDIA XL PO SCH ×2 (10:59→22:17)
--- NOTE | 2017-04-11 14:19 | Progress Note ---
Assessment and Plan Assessment and plan: Hypertensive urgency ; - Patient was on Cardizem drip in the emergency department and blood pressure was controlled and admitted to telemetry to continue his medications - Nifedipine was added, Lasix and valsartan discontinued Unstable anginaCardiac cath - 99% distal CX stent stenosis, 70% OM1, 70% Proximal RCA and 80% distal RCA, 90% PLVB (diffusely diseased) - Continue aspirin, Plavix and Coreg - patient is rescheduled to have Right coronary angioplasty tomorrow, per cardiology Ischemic cardiomyopathy with ejection fraction of 30-35% Diabetes mellitus leading still insulin Acute on chronic renal failure - Held Lasix DVT prophylaxis - SCD Disposition - will have right coronary tomorrow morning. History Interval history: Patient was seen and evaluated, patient was lying comfortably not in pain or distress. Hospitalist Physical - Physical exam Narrative exam: Not in cardiopulmonary distress. The patient appeared well nourished and normally developed. Vital signs as documented. Head exam is unremarkable. No scleral icterus . Neck is without jugular venous distension, thyromegaly, or carotid bruits. Lungs are clear to auscultation. Cardiac exam reveals regular rate and Rhythm. First and second heart sounds normal. No murmurs, rubs or gallops. Abdominal exam reveals normal bowel sounds, no masses, no organomegaly and no aortic enlargement. Extremities are nonedematous and both femoral and pedal pulses are normal. GENERALIST: Alert and oriented 3. No focal weakness. - Constitutional Vitals: Temp Pulse Resp BP Pulse Ox 97.8 F 89 18 161/89 99 04/11/17 08:01 04/11/17 08:01 04/11/17 08:01 04/11/17 10:59 04/11/17 10:00 General appearance: Present: no acute distress Results - Labs CBC & Chem 7: 04/11/17 07:05 04/11/17 07:05 Labs: Laboratory Last Values WBC 6.3 K/mm3 (4.5-11.0) 04/11/17 07:05 RBC 4.73 M/mm3 (3.65-5.03) 04/11/17 07:05 Hgb 13.6 gm/dl (11.8-15.2) 04/11/17 07:05 Hct 40.9 % (35.5-45.6) 04/11/17 07:05 MCV 87 fl (84-94) 04/11/17 07:05 MCH 29 pg (28-32) 04/11/17 07:05 MCHC 33 % (32-34) 04/11/17 07:05 RDW 15.0 % (13.2-15.2) 04/11/17 07:05 Plt Count 195 K/mm3 (140-440) 04/11/17 07:05 Lymph % (Auto) 16.5 % (13.4-35.0) 04/11/17 07:05 [place] % (Auto) 8.3 % (0.0-7.3) H 04/11/17 07:05 Eos % (Auto) 8.8 % (0.0-4.3) H 04/11/17 07:05 Baso % (Auto) 0.6 % (0.0-1.8) 04/11/17 07:05 Lymph # 1.0 K/mm3 (1.2-5.4) L 04/11/17 07:05 [place] # 0.5 K/mm3 (0.0-0.8) 04/11/17 07:05 Eos # 0.6 K/mm3 (0.0-0.4) H 04/11/17 07:05 Baso # 0.0 K/mm3 (0.0-0.1) 04/11/17 07:05 Seg Neutrophils % 65.8 % (40.0-70.0) 04/11/17 07:05 Seg Neutrophils # 4.1 K/mm3 (1.8-7.7) 04/11/17 07:05 PT 13.2 Sec. (12.2-14.9) 04/10/17 09:00 INR 1.01 (0.87-1.13) 04/10/17 09:00 D-Dimer 335.91 ng/mlDDU (0-234) H 04/09/17 03:42 Sodium 141 mmol/L (137-145) 04/11/17 07:05 Potassium 3.8 mmol/L (3.6-5.0) 04/11/17 07:05 Chloride 104.6 mmol/L (98-107) 04/11/17 07:05 Carbon Dioxide 23 mmol/L (22-30) 04/11/17 07:05 Anion Gap 17 mmol/L 04/11/17 07:05 BUN 16 mg/dL (9-20) 04/11/17 07:05 Creatinine 1.3 mg/dL (0.8-1.5) 04/11/17 07:05 Estimated GFR > 60 ml/min 04/11/17 07:05 BUN/Creatinine Ratio 12.30 % 04/11/17 07:05 Glucose 117 mg/dL (75-100) H 04/11/17 07:05 POC Glucose 91 (70-105) 04/11/17 06:38 Calcium 9.0 mg/dL (8.4-10.2) 04/11/17 07:05 Total Bilirubin 0.80 mg/dL (0.1-1.2) 04/08/17 17:40 AST 26 units/L (5-40) 04/08/17 17:40 ALT 39 units/L (7-56) 04/08/17 17:40 Alkaline Phosphatase 93 units/L (35-129) 04/08/17 17:40 Troponin T < 0.010 ng/mL (0.00-0.029) 04/09/17 03:56 NT-Pro-B Natriuret Pep 03904 pg/mL (0-900) H 04/08/17 17:40 Total Protein 6.8 g/dL (6.3-8.2) 04/08/17 17:40 Albumin 3.7 g/dL (3.9-5) L 04/08/17 17:40 Albumin/Globulin Ratio 1.2 % 04/08/17 17:40
[2017-04-11] MEDS: NACL 0.9% 1000 ML 1,000 ML IV SCH (19:48)
[2017-04-12 05:16] LABS: Anion Gap 16 mmol/L; BUN/Creatinine Ratio 12.85; Blood Urea Nitrogen 18 mg/dL (9-20); Calcium 9.1 mg/dL (8.4-10.2); Carbon Dioxide 26 mmol/L (22-30); Chloride 101.2 mmol/L (98-107); Glucose 90 mg/dL (75-100); Potassium 4.4 mmol/L (3.6-5.0); Sodium 139 mmol/L (137-145)
[2017-04-12 05:18] LABS: Eosinophils % (Auto) 11.2 % (0.0-4.3); Hematocrit 39.9 % (35.5-45.6); Hemoglobin 13.2 gm/dl (11.8-15.2); Mean Corpuscular HGB Conc 33 % (32-34); Mean Corpuscular Hemoglobin 29 pg (28-32); Mean Corpuscular Volume 86 fl (84-94); Platelet Count 206 K/mm3 (140-440); Red Blood Count 4.63 M/mm3 (3.65-5.03); Red Cell Distribution Width 14.9 % (13.2-15.2); White Blood Count 5.5 K/mm3 (4.5-11.0)
[2017-04-12 05:22] LABS: INR 0.93 (0.87-1.13)
[2017-04-12] MEDS: HEPARIN SUB-Q SCH ×4 (06:05→23:37)
[2017-04-12] MEDS: HALFPRIN EC PO SCH ×2 (06:49→10:39)
[2017-04-12] MEDS ORDERED: CALAN ONE (07:00)
[2017-04-12] MEDS ORDERED: HEPARIN 10,000 UNITS/10 ML ONE (07:00)
[2017-04-12] MEDS ORDERED: XYLOCAINE 2% INFILTRATI ONE (07:00)
[2017-04-12] MEDS ORDERED: NITROGLYCERIN SYRINGE 3 ML ONE (07:01)
[2017-04-12] MEDS ORDERED: VERSED ONE (07:01)
[2017-04-12] MEDS ORDERED: SUBLIMAZE ONE (07:01)
[2017-04-12] MEDS ORDERED: HEPARIN/NS 5000 UNIT/500ML(CATH LAB) 1,000 ML IR ONE (07:20)
[2017-04-12] MEDS ORDERED: AGGRASTAT DRIP (12.5 MG/250 ML) 12,500 MCG/250 ML BAG IV ONE (07:44)
[2017-04-12] MEDS ORDERED: BRILINTA ONE (08:13)
[2017-04-12] MEDS ORDERED: ALUM-MAG HYDROX-SIMETH 200-200-20MG/5ML ONE (08:13)
--- NOTE | 2017-04-12 08:32 | Progress Note ---
Assessment and Plan Shortness of breath congestive heart failure improving CAD S/P complex multi stent intervention to highly ectatic and subtotal RCA Residual CAD involivng the LCX for medical treatment due to poor distal targets Ischemic cardiomyopathy, LVEF 30-35% Systolic heart failure Stage B class II-III symptoms Hypertension -improving Diabetes mellitus Acute on chronic renal failure improving creatnine now 1.4 Recommendations: Continue nifedipine Continue coreg will need gradual uptitration If creatinine remains stable will add FRANCINE inhibitor Change plavix to brilinta due to extensive stents High intensity statins Likely DC in 1-2 days Stop aggrastat in 18 hrs Subjective Date of service: 04/12/17 Principal diagnosis: Unstable angina Interval history: Tolerated PCI well. No chest pain Objective Vital Signs Temp Pulse Resp BP BP Pulse Ox 04/12/17 05:35 98.4 F 70 18 142/83 94 04/12/17 00:08 97.9 F 80 18 169/90 94 04/11/17 22:39 99 04/11/17 22:00 60 04/11/17 20:01 98.5 F 74 20 152/80 97 04/11/17 16:03 98.7 F 69 18 152/84 98 04/11/17 10:59 161/89 04/11/17 10:00 68 18 99 - Physical Examination General: No Apparent Distress HEENT: Positive: PERRL, Normocephaly Neck: Positive: trachea midline Cardiac: Positive: Reg Rate and Rhythm Lungs: Positive: clear to auscultation Neuro: Positive: Grossly Intact Abdomen: Positive: Unremarkable Extremities: Present: normal - Labs and Meds Coagulation 04/12/17 Range/Units 04:00 PT 12.4 (12.2-14.9) Sec. INR 0.93 (0.87-1.13) CBC 04/11/17 04/12/17 Range/Units 07:05 04:00 WBC 6.3 5.5 (4.5-11.0) K/mm3 RBC 4.73 4.63 (3.65-5.03) M/mm3 Hgb 13.6 13.2 (11.8-15.2) gm/dl Hct 40.9 39.9 (35.5-45.6) % Plt Count 195 206 (140-440) K/mm3 Lymph # 1.0 L 1.2 (1.2-5.4) K/mm3 [place] # 0.5 0.5 (0.0-0.8) K/mm3 Eos # 0.6 H 0.6 H (0.0-0.4) K/mm3 Baso # 0.0 0.1 (0.0-0.1) K/mm3 Comprehensive Metabolic Panel 04/11/17 04/12/17 Range/Units 07:05 04:00 Sodium 141 139 (137-145) mmol/L Potassium 3.8 4.4 (3.6-5.0) mmol/L Chloride 104.6 101.2 (98-107) mmol/L Carbon Dioxide 23 26 (22-30) mmol/L BUN 16 18 (9-20) mg/dL Creatinine 1.3 1.4 (0.8-1.5) mg/dL Glucose 117 H 90 (75-100) mg/dL Calcium 9.0 9.1 (8.4-10.2) mg/dL
[2017-04-12] MEDS ORDERED: AGGRASTAT DRIP (12.5 MG/250 ML) 12,500 MCG/250 ML BAG IV SCH (09:00)
--- NOTE | 2017-04-12 09:19 | Cardiac Catherization Report ---
PERCUTANEOUS CORONARY INTERVENTION REPORT PROCEDURE PERFORMED: 1. Selective right coronary angiogram. 2. Successful percutaneous intervention of the right coronary artery. DRILLING SUPERVISOR: Shakir Cid MD INDICATION: Unstable angina. PROCEDURE DETAILS: Informed consent was obtained from the patient, the patient was cleaned and draped in the usual sterile fashion. Using a standard technique, a 6-Hungarian sheath was placed in the right radial artery. Radial cocktail consisting of 6000 units of heparin and 200 mcg of nitroglycerin and one of verapamil were given. Following which, a 6-Hungarian JR4 guide catheter was engaged in the right coronary artery. A BMW wire was used as a standard guidewire. The entire right coronary artery was highly ectatic. After initial predilatation, a 3.0 x 38 mm Xience drug-eluting stent was deployed in the distal right coronary artery. This was overlapped proximally with a 3.5 x 23 mm drug-eluting stent. The entire stented segment and overlapped segment were postdilated with a noncompliant balloon and the proximal and mid portions postdilated with a 4.0 balloon. The rest was post-dilated with a 3.5 balloon. We then proceeded to deploy a 3.5 x 18 mm proximally. This was then post-dilated to high atmospheres with a 4.0 balloon. The resultant angiogram showed good result. There still some ectasia was noted, but no dissection or thrombosis noted. The patient tolerated the procedure well. Aggrastat was also initiated given the thrombotic nature of the lesion. The patient was loaded with 180 mg of Brilinta. The guide was removed over the wire and sheath removed and TR band applied. FINDINGS: The right coronary artery is a large dominant vessel highly ectatic. There is a proximal 80%-90% stenosis followed by a long distal greater than 90% thrombotic stenosis. The PLVs are 100% occluded and appears to be chronic. IMPRESSION: Status post successful percutaneous intervention of the right coronary artery with the deployment of multiple drug-eluting stents. A 3.0 x 38 mm overlap with a 3.5 x 22 mm distally and a 3.5 x 18 mm proximally. The proximal and the initial part of the distal right coronary artery stent were postdilated with a 4.0 balloon. [place]ISE 3 flow was established. No residual thrombosis or dissection noted. PLAN: 1. Aspirin for life. 2. Brilinta for 1 year, preferably more. 3. Routine adjuvant pharmacotherapy post-PCI. 4. Routine radial artery sheath care. 5. Aggressive treatment of ischemic cardiomyopathy. [facility]# [id number] N[place]OL[place]/CATARINA [place]
[2017-04-12] MEDS: PROCARDIA XL PO SCH ×2 (10:39→23:23)
[2017-04-12] MEDS: COREG PO SCH ×2 (10:39→23:24)
--- NOTE | 2017-04-12 14:07 | Progress Note ---
Assessment and Plan Assessment and plan: Hypertensive urgency ; - Patient was on Cardizem drip in the emergency department and blood pressure was controlled and admitted to telemetry to continue his medications - Nifedipine was added, Lasix and valsartan discontinued Unstable anginaCardiac cath - 99% distal CX stent stenosis, 70% OM1, 70% Proximal RCA and 80% distal RCA, 90% PLVB (diffusely diseased) - 2 stents were placed this morning, Plavix was changed to brilinta, and he is on Aggrastat drip. - Titrated up Coreg as tolerated Ischemic cardiomyopathy with ejection fraction of 30-35% Diabetes mellitus - sliding scale insulin Acute on chronic renal failure - Held Lasix DVT prophylaxis - SCD Disposition - Stents were placed today and will be discharged tomorrow. History Interval history: Patient was seen and evaluated, patient was lying comfortably not in pain or distress. Hospitalist Physical - Physical exam Narrative exam: Not in cardiopulmonary distress. The patient appeared well nourished and normally developed. Vital signs as documented. Head exam is unremarkable. No scleral icterus . Neck is without jugular venous distension, thyromegaly, or carotid bruits. Lungs are clear to auscultation. Cardiac exam reveals regular rate and Rhythm. First and second heart sounds normal. No murmurs, rubs or gallops. Abdominal exam reveals normal bowel sounds, no masses, no organomegaly and no aortic enlargement. Extremities are nonedematous and both femoral and pedal pulses are normal. SANITATION TANK WASHER: Alert and oriented 3. No focal weakness. - Constitutional Vitals: Temp Pulse Resp BP Pulse Ox 98.4 F 70 18 149/93 97 04/12/17 05:35 04/12/17 05:35 04/12/17 05:35 04/12/17 10:39 04/12/17 10:00 General appearance: Present: no acute distress Results - Labs CBC & Chem 7: 04/12/17 04:00 04/12/17 04:00 Labs: Laboratory Last Values WBC 5.5 K/mm3 (4.5-11.0) 04/12/17 04:00 RBC 4.63 M/mm3 (3.65-5.03) 04/12/17 04:00 Hgb 13.2 gm/dl (11.8-15.2) 04/12/17 04:00 Hct 39.9 % (35.5-45.6) 04/12/17 04:00 MCV 86 fl (84-94) 04/12/17 04:00 MCH 29 pg (28-32) 04/12/17 04:00 MCHC 33 % (32-34) 04/12/17 04:00 RDW 14.9 % (13.2-15.2) 04/12/17 04:00 Plt Count 206 K/mm3 (140-440) 04/12/17 04:00 Lymph % (Auto) 22.6 % (13.4-35.0) 04/12/17 04:00 [place] % (Auto) 9.5 % (0.0-7.3) H 04/12/17 04:00 Eos % (Auto) 11.2 % (0.0-4.3) H 04/12/17 04:00 Baso % (Auto) 1.0 % (0.0-1.8) 04/12/17 04:00 Lymph # 1.2 K/mm3 (1.2-5.4) 04/12/17 04:00 [place] # 0.5 K/mm3 (0.0-0.8) 04/12/17 04:00 Eos # 0.6 K/mm3 (0.0-0.4) H 04/12/17 04:00 Baso # 0.1 K/mm3 (0.0-0.1) 04/12/17 04:00 Seg Neutrophils % 55.7 % (40.0-70.0) 04/12/17 04:00 Seg Neutrophils # 3.1 K/mm3 (1.8-7.7) 04/12/17 04:00 PT 12.4 Sec. (12.2-14.9) 04/12/17 04:00 INR 0.93 (0.87-1.13) 04/12/17 04:00 Activated Clotting Time 213 (74-137) H 04/12/17 08:13 Fibrinogen 467 mg/dl (211-480) 04/12/17 04:00 D-Dimer 335.91 ng/mlDDU (0-234) H 04/09/17 03:42 Sodium 139 mmol/L (137-145) 04/12/17 04:00 Potassium 4.4 mmol/L (3.6-5.0) 04/12/17 04:00 Chloride 101.2 mmol/L (98-107) 04/12/17 04:00 Carbon Dioxide 26 mmol/L (22-30) 04/12/17 04:00 Anion Gap 16 mmol/L 04/12/17 04:00 BUN 18 mg/dL (9-20) 04/12/17 04:00 Creatinine 1.4 mg/dL (0.8-1.5) 04/12/17 04:00 Estimated GFR > 60 ml/min 04/12/17 04:00 BUN/Creatinine Ratio 12.85 % 04/12/17 04:00 Glucose 90 mg/dL (75-100) 04/12/17 04:00 POC Glucose 98 (70-105) 04/12/17 12:09 Calcium 9.1 mg/dL (8.4-10.2) 04/12/17 04:00 Total Bilirubin 0.80 mg/dL (0.1-1.2) 04/08/17 17:40 AST 26 units/L (5-40) 04/08/17 17:40 ALT 39 units/L (7-56) 04/08/17 17:40 Alkaline Phosphatase 93 units/L (35-129) 04/08/17 17:40 Troponin T < 0.010 ng/mL (0.00-0.029) 04/09/17 03:56 NT-Pro-B Natriuret Pep 37897 pg/mL (0-900) H 04/08/17 17:40 Total Protein 6.8 g/dL (6.3-8.2) 04/08/17 17:40 Albumin 3.7 g/dL (3.9-5) L 04/08/17 17:40 Albumin/Globulin Ratio 1.2 % 04/08/17 17:40
[2017-04-12 19:11] LABS: INR 0.86 (0.87-1.13)
[2017-04-12 19:12] LABS: Partial Thromboplastin Time 29.2 Sec. (24.2-36.6)
[2017-04-12] MEDS: BRILINTA PO SCH (23:24)
[2017-04-13 04:44] LABS: Basophils % (Auto) 0.8 % (0.0-1.8); Eosinophils % (Auto) 9.5 % (0.0-4.3); Hematocrit 38.3 % (35.5-45.6); Hemoglobin 12.8 gm/dl (11.8-15.2); Mean Corpuscular HGB Conc 33 % (32-34); Mean Corpuscular Hemoglobin 29 pg (28-32); Mean Corpuscular Volume 87 fl (84-94); Platelet Count 224 K/mm3 (140-440); Red Blood Count 4.39 M/mm3 (3.65-5.03); Red Cell Distribution Width 15.4 % (13.2-15.2); White Blood Count 5.4 K/mm3 (4.5-11.0)
[2017-04-13 05:11] LABS: Creatine Kinase MB 5.8 ng/mL (0.0-4.0)
[2017-04-13 05:15] LABS: Anion Gap 19 mmol/L; BUN/Creatinine Ratio 15.71; Blood Urea Nitrogen 22 mg/dL (9-20); Calcium 8.9 mg/dL (8.4-10.2); Carbon Dioxide 23 mmol/L (22-30); Chloride 101.9 mmol/L (98-107); Creatine Kinase 136 units/L (55-170); Glucose 94 mg/dL (75-100); Potassium 4.4 mmol/L (3.6-5.0); Sodium 139 mmol/L (137-145)
[2017-04-13 06:03] LABS: Cholesterol 201 mg/dL (50-199); HDL Cholesterol 53 mg/dL (40-59); LDL Cholesterol,Direct 121 mg/dL (50-130); Triglycerides 135 mg/dL (2-149)
[2017-04-13] MEDS: HEPARIN SUB-Q SCH (06:41)
--- NOTE | 2017-04-13 10:17 | Discharge Summary ---
Providers - Providers Date of Admission: 04/09/17 04:41 Date of discharge: 04/13/17 Attending physician: ISABEL PACKER MD 04/09/17 07:21 Consult to Physician [CONS] Routine Consulting Provider: RUSSEL GODOY Reason For Exam: Chest pain, CAD, CHF exacerbation Place consult to:: answering service Notified:: yes Phone number called:: [phone] Was contact made?: Yes If yes, spoke with:: Ro Time called:: 08:18 04/10/17 09:38 Consult to Cardiac Rehabilitation [CONS] Routine Reason For Exam: Cardiac Rehab Evaluation 04/12/17 Consult to Cardiac Rehabilitation [CONS] Routine Reason For Exam: post pci Primary care physician: QUALITY ASSURANCE COORDINATOR Hospitalization Reason for admission: chest pain Condition: Stable Disposition: DC-01 TO HOME OR SELFCARE - Discharge Diagnoses (1) CHF exacerbation Status: Acute Qualifiers: Congestive heart failure type: C (2) Chest pain Status: Acute Qualifiers: Chest pain type: C Ischemic chest pain type: I (3) Noncompliance with medication regimen Status: Acute (4) Uncontrolled hypertension Status: Acute Core Measure Documentation - Core Measures Any of the following diagnoses?: acute AK - Acute AK Discharge Requirements Aspirin at discharge: Yes FRANCINE/ARB for LVSD if EF <40%: Yes Beta esequiel at discharge: Yes Statin for LDL = or >100 mg/dl on DC: Yes Exam - Physical Exam Narrative exam: Not in cardiopulmonary distress. The patient appeared well nourished and normally developed. Vital signs as documented. Head exam is unremarkable. No scleral icterus . Neck is without jugular venous distension, thyromegaly, or carotid bruits. Lungs are clear to auscultation. Cardiac exam reveals regular rate and Rhythm. First and second heart sounds normal. No murmurs, rubs or gallops. Abdominal exam reveals normal bowel sounds, no masses, no organomegaly and no aortic enlargement. Extremities are nonedematous and both femoral and pedal pulses are normal. RN RADIOLOGY: Alert and oriented 3. No focal weakness. - Constitutional Vitals: Temp Pulse Resp BP Pulse Ox 98.1 F 73 19 163/83 99 04/13/17 06:20 04/13/17 06:20 04/13/17 06:20 04/13/17 06:20 04/13/17 06:20 Plan Activity: no restrictions Weight Bearing Status: Full Weight Bearing Diet: low cholesterol, low salt Follow up with: PRIMARY CARE, [Primary Care Provider] - 7 Days MUKESH ADAMS MD [Staff Physician] - 7 Days Prescriptions: AtorvaSTATin [Lipitor] 80 mg PO QHS #30 tablet Albuterol Sulfate [Ventolin HFA] 2 puff IH Q4H PRN #1 can PRN Reason: Shortness Of Breath Aspirin EC [Aspirin Enteric Coated TAB] 81 mg PO QDAY #30 tablet Bisacodyl [Dulcolax suppos] 10 mg [place] QDAY PRN #12 supp.rect PRN Reason: constipation unrelieved by MOM Bumetanide [Bumex 1 mg tab] 1 mg PO DAILY 30 Days Carvedilol [Coreg] 3.125 mg PO BID #60 tablet Clopidogrel [Plavix] 75 mg PO QDAY #30 tablet glipiZIDE [glipiZIDE XL] 2.5 mg PO DAILY #30 tab.er.24 HYDROcodone/APAP 10-325 [[place] 10-325 mg TAB] 1 each PO Q6HR PRN #20 tablet PRN Reason: Pain Lisinopril [Zestril TAB] 20 mg PO QDAY 30 Days NIFEdipine XL [Procardia Xl] 60 mg PO Q12HR #60 tablet Ticagrelor [Brilinta] 90 mg PO BID #60 tablet Varenicline Tartrate [Chantix] 0.5 mg PO DAILY #60 tablet
--- NOTE | 2017-04-13 10:25 | Progress Note ---
Assessment and Plan 1. Coronary artery disease status post PCI and stenting of the RCA. 2. Ischemic cardiomyopathy LV ejection fraction 50-55% 3. Essential hypertension 4. Type 2 diabetes mellitus Plan. Cardiac-oropeza stable okay to discharge home follow up with chief executive in the office within a week. Subjective Date of service: 04/13/17 Principal diagnosis: Unstable angina Interval history: No cardiac symptoms. Objective Vital Signs Temp Pulse Pulse Resp BP BP Pulse Ox 04/13/17 06:20 98.1 F 73 19 163/83 99 04/13/17 00:00 98.6 F 77 20 134/67 94 04/12/17 22:00 98 04/12/17 19:00 98.7 F 84 20 140/82 94 04/12/17 16:55 98.1 F 88 20 173/86 99 04/12/17 12:05 97.9 F 68 22 164/81 04/12/17 11:15 98.7 F 69 20 168/91 98 04/12/17 10:45 98.3 F 65 20 147/82 98 04/12/17 10:39 149/93 - Physical Examination General: Appears Well, No Apparent Distress HEENT: Positive: PERRL, Normocephaly Neck: Positive: neck supple, trachea midline. Negative: JVD/HJR Cardiac: Positive: Regular Rate, S1/S2, PMI, Laterally Displaced Lungs: Positive: clear to auscultation Neuro: Positive: Grossly Intact Abdomen: Positive: Unremarkable Extremities: Present: normal. Absent: edema - Labs and Meds Cardiac Enzymes 04/13/17 Range/Units 04:17 CK-MB (CK-2) 5.8 H (0.0-4.0) ng/mL Coagulation 04/12/17 Range/Units 18:26 PT 12.2 (12.2-14.9) Sec. INR 0.86 L (0.87-1.13) APTT 29.2 (24.2-36.6) Sec. Lipids 04/13/17 Range/Units 04:17 Triglycerides 135 (2-149) mg/dL Cholesterol 201 H (50-199) mg/dL HDL Cholesterol 53 (40-59) mg/dL Cholesterol/HDL Ratio 3.79 % CBC 04/13/17 Range/Units 04:17 WBC 5.4 (4.5-11.0) K/mm3 RBC 4.39 (3.65-5.03) M/mm3 Hgb 12.8 (11.8-15.2) gm/dl Hct 38.3 (35.5-45.6) % Plt Count 224 (140-440) K/mm3 Lymph # 1.0 L (1.2-5.4) K/mm3 [place] # 0.6 (0.0-0.8) K/mm3 Eos # 0.5 H (0.0-0.4) K/mm3 Baso # 0.0 (0.0-0.1) K/mm3 Comprehensive Metabolic Panel 04/13/17 Range/Units 04:17 Sodium 139 (137-145) mmol/L Potassium 4.4 (3.6-5.0) mmol/L Chloride 101.9 (98-107) mmol/L Carbon Dioxide 23 (22-30) mmol/L BUN 22 H (9-20) mg/dL Creatinine 1.4 (0.8-1.5) mg/dL Glucose 94 (75-100) mg/dL Calcium 8.9 (8.4-10.2) mg/dL - Telemetry EKG Rhythm: Sinus Rhythm
[2017-04-13] MEDS: HALFPRIN EC PO SCH (10:54)
[2017-04-13] MEDS: PROCARDIA XL PO SCH (10:55)
[2017-04-13] MEDS: BRILINTA PO SCH (10:55)
[2017-04-13] MEDS: COREG PO SCH (10:55)
[2017-04-13 10:56] VITALS: BP 136/89
== END 2017-04-13 11:31 | disposition home or self-care (01) | DRG 246 ==
LOC: ED 16:39 → CC1 04-09 04:41 → 4A 04-09 19:37
PROVIDERS: ADMIT Internal Medicine; ATTEND Internal Medicine
PROC: 4A023N7 Measurement of Cardiac Sampling and Pressure, Left Heart, Percutaneous Approach (ICD-10-PCS; 2017-04-10)
PROC: B2111ZZ Fluoroscopy of Multiple Coronary Arteries using Low Osmolar Contrast (ICD-10-PCS; 2017-04-10)
PROC: 027035Z Dilation of Coronary Artery, One Artery with Two Drug-eluting Intraluminal Devices, Percutaneous Approach (ICD-10-PCS; principal; 2017-04-12)
DX: I25.110 Atherosclerotic heart disease of native coronary artery with unstable angina pectoris (principal); I50.23 Acute on chronic systolic (congestive) heart failure; I16.1 Hypertensive emergency; N17.9 Acute kidney failure, unspecified; I12.9 Hypertensive chronic kidney disease with stage 1 through stage 4 chronic kidney disease, or unspecified chronic kidney disease; F17.210 Nicotine dependence, cigarettes, uncomplicated; F10.10 Alcohol abuse, uncomplicated; N18.9 Chronic kidney disease, unspecified; E11.22 Type 2 diabetes mellitus with diabetic chronic kidney disease; I25.5 Ischemic cardiomyopathy; I16.0 Hypertensive urgency; I25.2 Old myocardial infarction; Z91.19 Patient's noncompliance with other medical treatment and regimen; Z98.61 Coronary angioplasty status; Z79.01 Long term (current) use of anticoagulants
CPT/HCPCS: 36415; 71010; 71020; 78582; 80048; 80053; 80061; 82550; 82553; 82962; 83880; 84484; 85014; 85018; 85025; 85027; 85347; 85379; 85384; 85610; 85730; 92928; 93005; 93010; 93306; 93458; 94760; 96374; 96375; 99406; A9270-GY; A9540; A9558; C1725; C1769; C1874; C1887; C1894; C9600; J0360; J1644; J1940; J2250; J2270; J3010; J3246; J7030; J7040; J7050; Q9967

== ENCOUNTER 2020-06-21 12:09 | Emergency (ER) | payer MEDICARE ==
[2020-06-21] MEDS ORDERED: ONDANSETRON 4 MG/2 ML INJ IV ONE (12:50)
[2020-06-21] MEDS ORDERED: MORPHINE 4 MG/1 ML INJ IV ONE (12:50)
[2020-06-21] MEDS ORDERED: SODIUM CHLORIDE 0.9% 500 ML 500 ML IV ONE (12:50)
--- NOTE | 2020-06-21 12:55 | Emergency Department Report ---
ED Abdominal Pain HPI - General Chief Complaint: Abdominal Pain Stated Complaint: ABD PAIN PUI?: No Time Seen by Provider: 06/21/20 12:50 Source: patient Mode of arrival: Ambulatory Limitations: No Limitations - History of Present Illness Initial Comments: Chief complaint: Severe abdominal pain HPI: This is a 64-year-old male with history of congestive heart failure, diabetes mellitus, coronary artery disease status post PCI cardiac stent, hypertension who presents with severe abdominal pain periumbilical radiating to the right and left lower quadrant for 1 to 2 weeks. Pain became worse today. He has nausea and vomiting. Gradual onset. Pain is worse with movement. Achy crampy quality. Has been persistent since this morning. He denies history of abdominal surgery. Patient has noticed bilateral leg swelling over the last several weeks. MD Complaint: abdominal pain -: Gradual, week(s) (1 to 2 weeks) Location: periumbilical Radiation: LLQ, RLQ Severity: severe Severity scale (0 -10): 8 Quality: cramping, aching Consistency: constant Improves With: nothing Worsens With: nothing Associated Symptoms: nausea, vomiting - Related Data Previous Rx's Medication Instructions Recorded Last Taken Type Albuterol Sulfate [Ventolin HFA] 2 puff IH Q4H PRN #1 can 04/13/17 Unknown Rx Aspirin EC [Halfprin EC] 81 mg PO QDAY #30 tablet 04/13/17 Unknown Rx AtorvaSTATin [Lipitor] 80 mg PO QHS #30 tablet 04/13/17 Unknown Rx Bumetanide [Bumex 1 mg tab] 1 mg PO DAILY 30 Days tablet 04/13/17 Unknown Rx Clopidogrel [Plavix] 75 mg PO QDAY #30 tablet 04/13/17 Unknown Rx HYDROcodone/APAP 10-325 [[place] 1 each PO Q6HR PRN #20 tablet 04/13/17 Unknown Rx 10-325 mg TAB] NIFEdipine XL [Procardia Xl] 60 mg PO Q12HR #60 tablet 04/13/17 Unknown Rx Ticagrelor [Brilinta] 90 mg PO BID #60 tablet 04/13/17 Unknown Rx Varenicline Tartrate [Chantix] 0.5 mg PO DAILY #60 tablet 04/13/17 Unknown Rx bisacodyL [Dulcolax suppos] 10 mg [place] QDAY PRN #12 supp.rect 04/13/17 Unknown Rx carvediloL [Coreg] 3.125 mg PO BID #60 tablet 04/13/17 Unknown Rx glipiZIDE [glipiZIDE XL] 2.5 mg PO DAILY #30 tab.er.24 04/13/17 Unknown Rx lisinopriL [Zestril TAB] 20 mg PO QDAY 30 Days tablet 04/13/17 Unknown Rx HYDROcodone/APAP 5-325 [[place] 1 each PO Q6HR PRN #10 tablet 06/21/20 Unknown Rx 5/325] Sulfamethoxazole/Trimethoprim 1 each PO BID 7 Days #14 tablet 06/21/20 Unknown Rx [Bactrim DS TAB] Allergies Allergy/AdvReac Type Severity Reaction Status Date / Time No Known Allergies Allergy Unverified 04/09/17 02:14 ED Review of Systems ROS: Stated complaint: ABD PAIN Other details as noted in HPI Comment: All other systems reviewed and negative Constitutional: denies: fever, malaise Respiratory: denies: cough, shortness of breath Gastrointestinal: abdominal pain, nausea, vomiting. denies: diarrhea Musculoskeletal: denies: back pain ED Past Medical Hx - Past Medical History Previous Medical History?: Yes Hx Hypertension: Yes Hx Heart Attack/AMI: Yes (S/P cardiac stent placement 2006) Hx Congestive Heart Failure: Yes Hx Diabetes: Yes Hx Deep Vein Thrombosis: No Hx Pulmonary Embolism: No Hx Liver Disease: No Hx Sickle Cell Disease: No Hx Asthma: No Hx COPD: No Hx Tuberculosis: No Hx HIV: No - Surgical History Past Surgical History?: Yes Hx Coronary Stent: Yes (2006) Hx Open Heart Surgery: No Hx Pacemaker: No Hx Internal Defibrillator: No Hx Cholecystectomy: No Hx Appendectomy: No Hx Breast Surgery: No Additional Surgical History: stents - Social History Smoking Status: Never Smoker Substance Use Type: None - Medications Home Medications: Home Medications Medication Instructions Recorded Confirmed Last Taken Type Albuterol Sulfate [Ventolin HFA] 2 puff IH Q4H PRN #1 can 04/13/17 Unknown Rx Aspirin EC [Halfprin EC] 81 mg PO QDAY #30 tablet 04/13/17 Unknown Rx AtorvaSTATin [Lipitor] 80 mg PO QHS #30 tablet 04/13/17 Unknown Rx Bumetanide [Bumex 1 mg tab] 1 mg PO DAILY 30 Days tablet 04/13/17 Unknown Rx Clopidogrel [Plavix] 75 mg PO QDAY #30 tablet 04/13/17 Unknown Rx HYDROcodone/APAP 10-325 [[place] 1 each PO Q6HR PRN #20 tablet 04/13/17 Unknown Rx 10-325 mg TAB] NIFEdipine XL [Procardia Xl] 60 mg PO Q12HR #60 tablet 04/13/17 Unknown Rx Ticagrelor [Brilinta] 90 mg PO BID #60 tablet 04/13/17 Unknown Rx Varenicline Tartrate [Chantix] 0.5 mg PO DAILY #60 tablet 04/13/17 Unknown Rx bisacodyL [Dulcolax suppos] 10 mg [place] QDAY PRN #12 supp.rect 04/13/17 Unknown Rx carvediloL [Coreg] 3.125 mg PO BID #60 tablet 04/13/17 Unknown Rx glipiZIDE [glipiZIDE XL] 2.5 mg PO DAILY #30 tab.er.24 04/13/17 Unknown Rx lisinopriL [Zestril TAB] 20 mg PO QDAY 30 Days tablet 04/13/17 Unknown Rx HYDROcodone/APAP 5-325 [[place] 1 each PO Q6HR PRN #10 tablet 06/21/20 Unknown Rx 5/325] Sulfamethoxazole/Trimethoprim 1 each PO BID 7 Days #14 tablet 06/21/20 Unknown Rx [Bactrim DS TAB] ED Physical Exam - General Limitations: No Limitations General appearance: alert, in no apparent distress, other (Appears uncomfortable, rubbing abdomen) - Head Head exam: Present: atraumatic, normocephalic - Eye Eye exam: Present: normal appearance - ENT ENT exam: Present: mucous membranes moist - Neck Neck exam: Present: normal inspection, full ROM - Respiratory Respiratory exam: Present: normal lung sounds bilaterally. Absent: respiratory distress, wheezes, rales, rhonchi - Cardiovascular Cardiovascular Exam: Present: regular rate, normal rhythm, normal heart sounds. Absent: systolic murmur, diastolic murmur, rubs, gallop - GI/Abdominal GI/Abdominal exam: Present: soft, normal bowel sounds. Absent: distended, tenderness, guarding, rebound - Rectal Rectal exam: Present: deferred - Extremities Exam Extremities exam: Present: pedal edema, other (2+ pitting edema from knees to feet) - Neurological Exam Neurological exam: Present: alert, oriented X3 - Psychiatric Psychiatric exam: Present: normal affect, normal mood - Skin Skin exam: Present: warm, dry, intact, normal color. Absent: rash ED Course Vital Signs 06/21/20 06/21/20 12:14 14:22 Temperature 98.1 F Pulse Rate 74 64 Respiratory 16 16 Rate Blood Pressure 136/73 170/84 [Right] O2 Sat by Pulse 95 94 Oximetry ED Medical Decision Making - Lab Data Result diagrams: 06/21/20 13:03 06/21/20 13:03 Laboratory Results - last 24 hr 06/21/20 06/21/20 06/21/20 13:03 13:03 14:22 WBC 8.5 RBC 4.59 Hgb 12.9 Hct 38.3 MCV 83 L MCH 28 MCHC 34 RDW 14.8 Plt Count 262 Lymph % (Auto) 10.3 L [place] % (Auto) 4.8 Eos % (Auto) 1.6 Baso % (Auto) 0.9 Lymph # 0.9 L [place] # 0.4 Eos # 0.1 Baso # 0.1 Seg Neutrophils % 82.4 H Seg Neutrophils # 7.0 Sodium 140 Potassium 4.3 Chloride 102.7 Carbon Dioxide 22 Anion Gap 20 BUN 35 H Creatinine 2.1 H Estimated GFR 38 BUN/Creatinine Ratio 17 Glucose 127 H Calcium 9.5 Total Bilirubin 0.40 Direct Bilirubin < 0.2 Indirect Bilirubin 0.2 AST 24 ALT 31 Alkaline Phosphatase 115 Total Protein 7.7 Albumin 4.2 Albumin/Globulin Ratio 1.2 Lipase 73 H Urine Color Colorless Urine Turbidity Clear Urine pH 6.0 Ur Specific [place] 1.008 Urine Protein 30 mg/dl Urine Glucose (UA) Neg Urine Ketones Neg Urine Blood Sm Urine Nitrite Neg Urine Bilirubin Neg Urine Urobilinogen < 2.0 Ur Leukocyte Esterase Neg Urine WBC (Auto) < 1.0 Urine RBC (Auto) 1.0 Urine Mucus Few - Radiology Data Radiology results: report reviewed CT scan abdomen pelvis without contrast: Air is seen within a mildly thickened bladder wall findings are concerning for emphysematous cystitis - Medical Decision Making 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 However preemptively I have prescribed Bactrim. No leukocytosis no abdominal tenderness on reexamination. Patient states that he is actually hungry and desires to eat food. No other inflammatory process seen on CT scan. 2. Abnormal kidney function when compared to 2017 may be the reason for bilateral lower extremity swelling. Patient admits that he is not seen his primary care physician in 1 year. 1 year ago he moved from [place] to be with his ex-. He has not been compliant with his medication regimen. I strongly recommended that he is seen by our outpatient medicine physician and private branch exchange installer. 3. Bilateral knee pain suggestive of DJD prescribed 10 tablets of [place] referred to orthopedic surgeon. Critical care attestation.: If time is entered above; I have spent that time in minutes in the direct care of this critically ill patient, excluding procedure time. ED Disposition Clinical Impression: Abdominal pain, Cystitis, Chronic kidney disease, DJD (degenerative joint disease) of knee Disposition: TO HOME OR SELFCARE Is pt being admited?: No Does the pt Need Aspirin: No Condition: Stable Instructions: Chronic Kidney Disease (ED), Urinary Tract Infection in Men (ED) Prescriptions: Sulfamethoxazole/Trimethoprim [Bactrim DS TAB] 1 each PO BID 7 Days #14 tablet HYDROcodone/APAP 5-325 [[place] 5/325] 1 each PO Q6HR PRN #10 tablet PRN Reason: Pain Referrals: THAO HUNT MD [Staff Physician] - 3-5 Days KAREL IBRAHMI MD [Staff Physician] - 3-5 Days ARCHANA SALINAS MD [Staff Physician] - 3-5 Days
[2020-06-21 13:14] LABS: Basophils # (Auto) 0.1 K/mm3 (0.0-0.1); Basophils % (Auto) 0.9 % (0.0-1.8); Eosinophils # (Auto) 0.1 K/mm3 (0.0-0.4); Eosinophils % (Auto) 1.6 % (0.0-4.3); Hematocrit 38.3 % (35.5-45.6); Hemoglobin 12.9 gm/dl (11.8-15.2); Lymphocytes # (Auto) 0.9 K/mm3 (1.2-5.4); Lymphocytes % (Auto) 10.3 % (13.4-35.0); Mean Corpuscular HGB Conc 34 % (32-34); Mean Corpuscular Volume 83 fl (84-94); Monocytes # (Auto) 0.4 K/mm3 (0.0-0.8); Monocytes % (Auto) 4.8 % (0.0-7.3); Platelet Count 262 K/mm3 (140-440); Red Blood Count 4.59 M/mm3 (3.65-5.03); Red Cell Distribution Width 14.8 % (13.2-15.2)
[2020-06-21 13:31] LABS: Alanine Aminotransferase 31 units/L (7-56); Albumin 4.2 g/dL (3.9-5); BUN/Creatinine Ratio 17; Blood Urea Nitrogen 35 mg/dL (9-20); Calcium 9.5 mg/dL (8.4-10.2); Hemolysis Index 5
[2020-06-21 13:41] LABS: Bilirubin,Direct < 0.2 mg/dL (0-0.2)
[2020-06-21] MEDS ORDERED: SODIUM CHLORIDE 0.9% 1000 ML 1,000 ML IV ONE (14:16)
[2020-06-21 14:22] VITALS: BP 170/84
--- NOTE | 2020-06-21 14:22 | Cat Scan Report ---
CT abdomen pelvis wo con INDICATION: Severe periumbilical pain. COMPARISON: None TECHNIQUE: Abdominal and pelvic CT exam performed. All CT scans at this location are performed using CT dose reduction for ALARA by means of automated exposure control. FINDINGS: CT ABDOMEN and PELVIS: Lung Bases: Bibasilar atelectatic changes. Liver: No significant abnormality. Biliary: No significant abnormality. Spleen: No significant abnormality. Pancreas: No significant abnormality. Adrenals: No significant abnormality. Kidneys: No significant abnormality. Bladder: Air is seen within a mildly thickened bladder wall. Lymphatics: No lymphadenopathy. Vasculature: No significant abnormality. Bowel/Peritoneum: No significant abnormality. Normal appendix. Pelvis: Moderately enlarged prostate. Osseous Structures: No aggressive osseous lesion. Additional Findings: None IMPRESSION: 1. Air is seen within a mildly thickened bladder wall. Findings are concerning for emphysematous cyst itis. Signer Name: Damian Keita MD Signed: 06/21/2020 2:18 PM Workstation Name: [id number]
[2020-06-21] MEDS ORDERED: PIPERACIL/TAZOBACTA 4.5/NS 100 4.5 GM/100 ML VIAL IV ONE (14:30)
[2020-06-21 14:34] LABS: Bilirubin,Urine NEG (Negative); Blood,Urine SM (Negative); Color,Urine Colorless (Yellow); Mucus,Urine FEW /HPF; Urobilinogen,Urine < 2.0 mg/dL (<2.0); WBC,Urine < 1.0 /HPF (0.0-6.0)
== END 2020-06-21 17:01 | disposition home or self-care (01) ==
LOC: ED 12:09
DX: N30.90 Cystitis, unspecified without hematuria (principal); E11.22 Type 2 diabetes mellitus with diabetic chronic kidney disease; I13.0 Hypertensive heart and chronic kidney disease with heart failure and stage 1 through stage 4 chronic kidney disease, or unspecified chronic kidney disease; N18.9 Chronic kidney disease, unspecified; I50.9 Heart failure, unspecified; M17.0 Bilateral primary osteoarthritis of knee; Z79.82 Long term (current) use of aspirin; Z79.899 Other long term (current) drug therapy
CPT/HCPCS: 36415; 74176; 80048; 80076; 81001; 83690; 85025; 87086; 96365; 96375; 99284; J2270; J2405; J2543; J7030; J7040

== ENCOUNTER 2020-08-04 09:22 | Outpatient (CLI) | payer MEDICARE ==
[2020-08-04 10:11] LABS: Hematocrit 36.7 % (35.5-45.6); Hemoglobin 12.6 gm/dl (11.8-15.2); Mean Corpuscular HGB Conc 35 % (32-34); Mean Corpuscular Volume 83 fl (84-94); Platelet Count 248 K/mm3 (140-440); Red Cell Distribution Width 15.2 % (13.2-15.2)
[2020-08-04 10:15] LABS: Bilirubin,Urine NEG (Negative); Blood,Urine NEG (Negative); Color,Urine Yellow (Yellow); Hyaline Casts,Urine 1 /LPF; Mucus,Urine FEW /HPF; Urobilinogen,Urine < 2.0 mg/dL (<2.0)
[2020-08-04 10:36] LABS: Albumin 4.2 g/dL (3.9-5); Calcium 9.3 mg/dL (8.4-10.2)
[2020-08-04 15:40] LABS: Creatinine,Urine 288.9 mg/dL (0.1-20.0); Microalbumin/Creatinine Ratio 313.2 ug/mg
[2020-08-07 12:00] LABS: Vitamin D, 25-OH, D2 <4 ng/mL
== END 2020-08-04 09:23 | disposition home or self-care (01) ==
LOC: LAB 09:22
PROVIDERS: ATTEND Internal Medicine Nephrology
DX: E08.22 Diabetes mellitus due to underlying condition with diabetic chronic kidney disease (principal); R94.4 Abnormal results of kidney function studies; N30.90 Cystitis, unspecified without hematuria; E66.3 Overweight
CPT/HCPCS: 36415; 80048; 81001; 82040; 82043; 82306; 83036; 83970; 84100; 84156; 85027

== ENCOUNTER 2021-06-30 10:16 | Emergency (ER) | payer MEDICARE ==
--- NOTE | 2021-06-30 10:28 | Emergency Department Report ---
HPI - General Time Seen by Provider: 06/30/21 10:23 - HPI HPI: Room 1 The patient is a six 5-year-old male present with a chief complaint of cardiac arrest. Per EMS patient was a witnessed arrest at a personal fdc. EMS arrived on scene at 09: 24 to find the patient in asystole. ACLS protocols were initiated and the patient was intubated using a Combitube. Patient was administered 3 rounds epinephrine via IO by EMS prior to arrival. Upon arrival to the ED the Combitube was removed and the patient was intubated by myself using 8.0 tube and glidescope. ACLS protocols were continued but there was no return of spontaneous circulation. ED Past Medical Hx - Past Medical History Hx Hypertension: Yes Hx Heart Attack/AMI: Yes (S/P cardiac stent placement 2006) Hx Congestive Heart Failure: Yes Hx Diabetes: Yes - Surgical History Hx Coronary Stent: Yes (2006) Additional Surgical History: stents - Family History Family history: no significant - Social History Smoking Status: Unknown if ever smoked Substance Use Type: None - Medications Home Medications: Home Medications Medication Instructions Recorded Confirmed Last Taken Type Albuterol Sulfate [Ventolin HFA] 2 puff IH Q4H PRN #1 can 04/13/17 Unknown Rx Aspirin EC [Halfprin EC] 81 mg PO QDAY #30 tablet 04/13/17 Unknown Rx AtorvaSTATin [Lipitor] 80 mg PO QHS #30 tablet 04/13/17 Unknown Rx Bumetanide [Bumex 1 mg tab] 1 mg PO DAILY 30 Days tablet 04/13/17 Unknown Rx Clopidogrel [Plavix] 75 mg PO QDAY #30 tablet 04/13/17 Unknown Rx HYDROcodone/APAP 10-325 [[place] 1 each PO Q6HR PRN #20 tablet 04/13/17 Unknown Rx 10-325 mg TAB] NIFEdipine XL [Procardia Xl] 60 mg PO Q12HR #60 tablet 04/13/17 Unknown Rx Ticagrelor [Brilinta] 90 mg PO BID #60 tablet 04/13/17 Unknown Rx Varenicline Tartrate [Chantix] 0.5 mg PO DAILY #60 tablet 04/13/17 Unknown Rx bisacodyL [Dulcolax suppos] 10 mg [place] QDAY PRN #12 supp.rect 04/13/17 Unknown Rx carvediloL [Coreg] 3.125 mg PO BID #60 tablet 04/13/17 Unknown Rx glipiZIDE [glipiZIDE XL] 2.5 mg PO DAILY #30 tab.er.24 04/13/17 Unknown Rx lisinopriL [Zestril TAB] 20 mg PO QDAY 30 Days tablet 04/13/17 Unknown Rx HYDROcodone/APAP 5-325 [[place] 1 each PO Q6HR PRN #10 tablet 06/21/20 Unknown Rx 5/325] Sulfamethoxazole/Trimethoprim 1 each PO BID 7 Days #14 tablet 06/21/20 Unknown Rx [Bactrim DS TAB] Dicyclomine [Bentyl] 20 mg PO Q6H PRN #30 tablet 06/22/20 Unknown Rx Ondansetron [Zofran Odt] 4 mg PO Q6HR PRN #15 tab.rapdis 06/22/20 Unknown Rx ED Review of Systems ROS: Stated complaint: CARDIAC ARREST Other details as noted in HPI Comment: Unobtainable due to pts medical conditions Physical Exam - Physical Exam Physical Exam: GENERAL: The patient is well-developed well-nourished male lying on stretcher receiving chest compressions. [] HEENT: Normocephalic. Atraumatic. NECK: Trachea midline CHEST/LUNGS: No spontaneous respirations. Breath sounds equal bilaterally after intubation by myself HEART/CARDIOVASCULAR: No heart sounds. Asystole on monitor ABDOMEN: Abdomen is soft SKIN: There is no rash. There is no edema. There is no diaphoresis. NEURO: GCS 3 T MUSCULOSKELETAL: There is no evidence of acute injury. - Intubation Time Out Performed: No Laryngoscope: fiberoptic video scope Size: 3 Assist Device Used: fiberoptic device ET Tube Size: 8 Tube Secured Depth (cm): 24 Tube Secured Location: lips Tube Placement Confirmation: visualized tube passing t, equal breath sounds bilat, no breath sounds over epi, confirmation by capnometr Patient Tolerated Procedure: no complications Intubation Complications: none Critical care attestation.: If time is entered above; I have spent that time in minutes in the direct care of this critically ill patient, excluding procedure time. ED Disposition Clinical Impression: Cardiac arrest Disposition: 20 Is pt being admited?: No Does the pt Need Aspirin: No Condition: Poor Time of Disposition: 10:25 (Patient )
== END 2021-06-30 14:58 ==
LOC: ED 10:16
DX: I46.9 Cardiac arrest, cause unspecified (principal); I11.0 Hypertensive heart disease with heart failure; E11.8 Type 2 diabetes mellitus with unspecified complications; Z98.890 Other specified postprocedural states
CPT/HCPCS: 31500; 92950; 99285